=== PATIENT | female | born 1960 | race Caucasian/White ===

== ENCOUNTER 2016-07-26 22:43 | Emergency (ER) | payer OTHER ==
[~2016-07-26] VITALS: Ht 157.5 cm; Wt 102.0 kg
[~2016-07-26 22:43] MED LIST: ADDERALL10 MG PO; ADVAIR 250/501 DISK IH; BUSPAR10 MG PO; DAILY VITE1 EAC1 PO; EFFEXOR XR37.5 MG PO; FISH OIL 1,0001 EAC7 PO; LEVAQUIN750 MG PO; MELOXICAM15 MG PO; MOBIC15 MG PO; MULTIVITAMIN1 EAC2 PO; PHENERGAN-CODE120 ML PO; PREDNISONE10 MG PO; PREDNISONE20 MG PO; PROAIR HFA8.5 GM IH; PROMETHAZINE-C120 ML PO; SINGULAIR10 MG PO; TRAZODONE HCL100 MG PO; TRAZODONE HCL150 MG PO; VYVANSE40 MG PO; ZYRTEC10 M2 PO; ZYRTEC10 M3 PO
[2016-07-26] MEDS ORDERED: MOTRIN800 MG PO (23:40)
[2016-07-26] MEDS ORDERED: FLEXERIL10 MG PO (23:40)
[2016-07-26] MEDS ORDERED: PREDNISONE20 MG PO (23:40)
[2016-07-27 00:03] VITALS: BP 131/87
== END 2016-07-27 00:04 | disposition home or self-care (01) ==
LOC: EME 22:43
DX: R07.81 Pleurodynia (principal); J45.909 Unspecified asthma, uncomplicated; Z87.891 Personal history of nicotine dependence
CPT/HCPCS: 99281; 99284; J1885; J7512

== ENCOUNTER 2016-08-05 14:12 | Emergency (ER) | payer OTHER ==
[~2016-08-05] VITALS: Ht 157.5 cm; Wt 102.2 kg
[~2016-08-05 14:12] MED LIST changes: +FLEXERIL10 MG PO; +MOTRIN800 MG PO
[2016-08-05] MEDS ORDERED: VYVANSE40 MG PO (15:03)
[2016-08-05] MEDS ORDERED: EFFEXOR XR75 MG PO (15:03)
[2016-08-05] MEDS ORDERED: WELLBUTRIN SR100 MG PO (15:04)
[2016-08-05] MEDS ORDERED: TORADOL10 MG PO (16:19)
[2016-08-05 16:33] VITALS: BP 138/88
== END 2016-08-05 16:33 | disposition home or self-care (01) ==
LOC: EME 14:12
DX: M75.31 Calcific tendinitis of right shoulder (principal)
CPT/HCPCS: 73030; 99281; 99283; J1885